=== PATIENT | female | born 1965 | race Caucasian/White ===

== ENCOUNTER 2019-10-05 09:03 | Inpatient (IN) ==
[2019-10-05 10:09] LABS: Bilirubin,Urine Negative (Negative); Blood,Urine Negative (Negative); Clarity,Urine Clear (Clear); Color,Urine Light-Yellow (Yellow); Glucose,Urine (UA) 500 mg/dL (Normal); Ketones,Urine Negative (Negative); Leukocyte Esterase,Urine Negative (Negative); Nitrite,Urine Negative (Negative); PH,Urine 6.5 pH Units (5.0-8.0); Protein,Urine Negative (Neg-Trace); Specific Gravity,Urine 1.014 (1.010-1.025); Urobilinogen,Urine Normal (Normal)
[2019-10-05 10:27] LABS: Acetaminophen < 10 mcg/mL (10-20); Alanine Aminotransferase 24 Units/L (7-52); Albumin/Globulin Ratio 1.6 (1.1-2.2); Alkaline Phosphatase 101 Units/L (34-104); Aspartate Amino Transferase 21 Units/L (13-39); BUN/Creatinine Ratio 22 (6-26); Bilirubin,Direct 0.1 mg/dL (0.0-0.2); Bilirubin,Indirect 0.4 mg/dL (0.0-1.0); Bilirubin,Total 0.5 mg/dL (0.3-1.0); Blood Urea Nitrogen 16 mg/dL (6-20); Calcium 8.9 mg/dL (8.6-10.3); Carbon Dioxide 26 mEq/L (23-29); Chloride 106 mEq/L (98-107); Ethanol < 10 mg/dL (Less than 10); Globulin 2.5 g/dL (2.4-3.5); Glucose 146 mg/dL (70-105); Osmolality,Calculated 290 (280-300); Potassium 3.8 mEq/L (3.5-5.1); Salicylate < 2.5 mg/dL (15.0-30.0); Sodium 138 mEq/L (136-145); Total Protein 6.5 g/dL (6.4-8.9); Troponin I < 0.03 ng/mL (< 0.04); eGFR For African Americans > 60 (> 60); eGFR For Non-African Americans > 60 (> 60)
[2019-10-05] MEDS ORDERED: Ondansetron 4 MG/2 ML VIAL IVP ONE ×2 (10:48→15:37)
[2019-10-05] MEDS ORDERED: Nitroglycerin 1 INCH/GM PACKET TP ONE ×2 (10:55→15:39)
[2019-10-05 10:58] LABS: Amphetamine Screen,Urine Negative ng/mL (Cutoff=1000); Barbiturate Screen,Urine Negative ng/mL (Cutoff=200); Benzodiazepines Screen,Urine Negative ng/mL (Cutoff=200); Cannabinoid Screen,Urine Positive ng/mL (Cutoff = 50); Cocaine Screen,Urine Negative ng/mL (Cutoff= 300); Opiate Screen,Urine Negative ng/mL (Cutoff=300); Phencyclidine Screen,Urine Negative ng/mL (Cutoff=25)
[2019-10-05 11:17] LABS: Basophils % 0.5 %; Eosinophils # 0.1 K/mcL (0.0-0.6); Eosinophils % 2.3 %; Hematocrit 35.8 % (35.3-44.9); Hemoglobin 12.3 g/dL (11.5-15.4); Immature Granulocytes % 0.4 % (0-4); Lymphocytes # 2.5 K/mcL (0.6-4.6); Lymphocytes % 43.1 %; Mean Corpuscular HGB Conc 34.4 g/dL (31.6-35.5); Mean Corpuscular Hemoglobin 31.2 pg (28.0-33.3); Mean Corpuscular Volume 90.9 fL (83.0-100.0); Mean Platelet Volume 10.8 fL (9.4-12.4); Monocytes # 0.4 K/mcL (0.0-1.3); Monocytes % 6.1 %; Neutrophils # 2.7 K/mcL (1.6-8.9); Platelet Count 147 K/mcL (140-400); Red Blood Count 3.94 M/mcL (3.82-4.97); Red Cell Distribution Width 12.1 % (11.5-14.5); Segmented Neutrophils % 47.6 %; White Blood Count 5.7 K/mcL (4.3-11.1)
[2019-10-05] MEDS ORDERED: Naloxone 0.4 MG/ML INJ IVP PRN (13:22)
[2019-10-05] MEDS ORDERED: *HR* Dextrose 50 % in Water (Vial) 50 ML VIAL IVP PRN (13:24)
[2019-10-05] MEDS ORDERED: D5% in Water 1,000 ML IVC PRN (13:24)
[2019-10-05] MEDS ORDERED: Dextrose Gel 15 GM/37.5 ML TUBE PO PRN ×2 (13:24)
[2019-10-05] MEDS ORDERED: Perflutren Lipid Microsphere 1.3 ML in 0.9 % Sodium Chloride 8.7 ML IVP ONE ×2 (13:25→20:51)
[2019-10-05] MEDS: Insulin LISPRO 300 UNITS/3 ML VIAL SQ SCH ×2 (14:05→15:28)
[2019-10-05] MEDS: *HR* Heparin 5,000 UNIT/ML VIAL SQ SCH (15:28)
[2019-10-05] MEDS: polyethylene glycoL 3350 17 GM POWD.PACK PO PRN (16:21)
[2019-10-05] MEDS ORDERED: Albuterol 2.5 MG/3 ML NEBULIZER IH PRN (20:00)
[2019-10-05] MEDS: Gabapentin 400 MG CAPSULE PO SCH (20:54)
[2019-10-05] MEDS ORDERED: Melatonin 3 MG TABLET PO ONE (21:31)
[2019-10-05] MEDS: Simethicone 80 MG TAB.CHEW PO PRN (21:45)
[2019-10-06 02:21] LABS: Hematocrit 36.3 % (35.3-44.9); Hemoglobin 12.2 g/dL (11.5-15.4); Mean Corpuscular HGB Conc 33.6 g/dL (31.6-35.5); Mean Corpuscular Volume 92.4 fL (83.0-100.0); Mean Platelet Volume 10.8 fL (9.4-12.4); Platelet Count 145 K/mcL (140-400); Red Blood Count 3.93 M/mcL (3.82-4.97); White Blood Count 6.1 K/mcL (4.3-11.1)
[2019-10-06 02:26] LABS: BUN/Creatinine Ratio 16 (6-26); Blood Urea Nitrogen 10 mg/dL (6-20); Calcium 8.6 mg/dL (8.6-10.3); Carbon Dioxide 28 mEq/L (23-29); Chloride 106 mEq/L (98-107); Glucose 154 mg/dL (70-105); Osmolality,Calculated 292 (280-300); Potassium 3.8 mEq/L (3.5-5.1); Sodium 140 mEq/L (136-145); eGFR For African Americans > 60 (> 60); eGFR For Non-African Americans > 60 (> 60)
[2019-10-06] MEDS ORDERED: *HR* LORazepam 2 MG/ML VIAL IVP ONE ×3 (02:44→19:18)
[2019-10-06] MEDS: *HR* Heparin 5,000 UNIT/ML VIAL SQ SCH ×2 (05:38→15:14)
[2019-10-06] MEDS ORDERED: Regadenoson 0.4 MG/5 ML SYRINGE IVP ONE (06:20)
[2019-10-06] MEDS: Insulin LISPRO 300 UNITS/3 ML VIAL SQ SCH ×3 (07:14→15:28)
[2019-10-06] MEDS: Gabapentin 400 MG CAPSULE PO SCH ×3 (07:14→20:29)
[2019-10-06] MEDS: Loratadine 10 MG TABLET PO SCH (07:14)
[2019-10-06] MEDS ORDERED: SUMAtriptan succinate 50 MG TABLET PO PRN (10:56)
[2019-10-06] MEDS: Aspirin Enteric Coated 81 MG Tablet PO SCH (15:22)
[2019-10-06] MEDS: Simethicone 80 MG TAB.CHEW PO PRN (15:22)
[2019-10-06] MEDS: lamoTRIgine 25 MG TABLET PO SCH (20:29)
[2019-10-07] MEDS: polyethylene glycoL 3350 17 GM POWD.PACK PO PRN (02:38)
[2019-10-07] MEDS ORDERED: Hydrocortisone Acetate 25 MG RECTAL SUPPOSITORY RC ONE (04:08)
[2019-10-07] MEDS: *HR* Heparin 5,000 UNIT/ML VIAL SQ SCH ×2 (04:53→17:25)
[2019-10-07 06:17] LABS: Hematocrit 35.7 % (35.3-44.9); Mean Corpuscular HGB Conc 36.4 g/dL (31.6-35.5); Mean Corpuscular Hemoglobin 32.5 pg (28.0-33.3); Mean Corpuscular Volume 89.3 fL (83.0-100.0); Mean Platelet Volume 10.2 fL (9.4-12.4); Platelet Count 153 K/mcL (140-400); Red Cell Distribution Width 11.9 % (11.5-14.5); White Blood Count 7.5 K/mcL (4.3-11.1)
[2019-10-07 06:33] LABS: BUN/Creatinine Ratio 17 (6-26); Blood Urea Nitrogen 11 mg/dL (6-20); Calcium 9.3 mg/dL (8.6-10.3); Carbon Dioxide 26 mEq/L (23-29); Chloride 105 mEq/L (98-107); Glucose 132 mg/dL (70-105); Osmolality,Calculated 285 (280-300); Sodium 137 mEq/L (136-145); eGFR For African Americans > 60 (> 60); eGFR For Non-African Americans > 60 (> 60)
[2019-10-07] MEDS ORDERED: Acetaminophen 325 MG TABLET PO ONE (06:49)
[2019-10-07] MEDS ORDERED: lisinopriL 5 MG TABLET PO SCH (09:00)
[2019-10-07] MEDS: Insulin LISPRO 300 UNITS/3 ML VIAL SQ SCH ×3 (09:30→17:11)
[2019-10-07] MEDS: Loratadine 10 MG TABLET PO SCH (09:36)
[2019-10-07] MEDS: Venlafaxine XR (24 HR) 75 MG CAP.ER.24H PO SCH (09:36)
[2019-10-07] MEDS: Aspirin Enteric Coated 81 MG Tablet PO SCH (09:36)
[2019-10-07] MEDS: ARIPiprazole 10 MG TABLET PO SCH (09:36)
[2019-10-07] MEDS: Gabapentin 400 MG CAPSULE PO SCH ×3 (09:37→21:04)
[2019-10-07] MEDS: lamoTRIgine 25 MG TABLET PO SCH (21:03)
[2019-10-07] MEDS ORDERED: Melatonin 3 MG TABLET PO ONE (22:43)
[2019-10-08] MEDS ORDERED: Preparation H Ointment 57 GM TUBE RC PRN (03:08)
[2019-10-08] MEDS ORDERED: Hydrocortisone Rectal 2.5% CRM 28 GM TUBE RC PRN (05:08)
[2019-10-08 05:43] LABS: Hematocrit 39.4 % (35.3-44.9); Hemoglobin 13.9 g/dL (11.5-15.4); Mean Corpuscular HGB Conc 35.3 g/dL (31.6-35.5); Mean Corpuscular Hemoglobin 31.4 pg (28.0-33.3); Mean Corpuscular Volume 88.9 fL (83.0-100.0); Mean Platelet Volume 10.3 fL (9.4-12.4); Platelet Count 175 K/mcL (140-400); Red Blood Count 4.43 M/mcL (3.82-4.97); White Blood Count 7.1 K/mcL (4.3-11.1)
[2019-10-08] MEDS: *HR* Heparin 5,000 UNIT/ML VIAL SQ SCH ×2 (06:31→16:48)
[2019-10-08] MEDS: Loratadine 10 MG TABLET PO SCH (08:00)
[2019-10-08] MEDS: Venlafaxine XR (24 HR) 75 MG CAP.ER.24H PO SCH (08:00)
[2019-10-08] MEDS: carvediloL 6.25 MG TABLET PO SCH ×2 (08:00→16:48)
[2019-10-08] MEDS: Gabapentin 400 MG CAPSULE PO SCH ×3 (08:00→21:38)
[2019-10-08] MEDS: Aspirin Enteric Coated 81 MG Tablet PO SCH (08:00)
[2019-10-08] MEDS: lisinopriL 5 MG TABLET PO SCH (08:01)
[2019-10-08] MEDS: ARIPiprazole 10 MG TABLET PO SCH (08:01)
[2019-10-08] MEDS: Insulin LISPRO 300 UNITS/3 ML VIAL SQ SCH ×3 (08:23→16:47)
[2019-10-08] MEDS ORDERED: lisinopriL 5 MG TABLET PO SCH (09:00)
[2019-10-08] MEDS: Acetaminophen 325 MG TABLET PO PRN ×2 (10:01→21:38)
[2019-10-08] MEDS: Simethicone 80 MG TAB.CHEW PO PRN (18:14)
[2019-10-08] MEDS ORDERED: Melatonin 3 MG TABLET PO SCH (21:00)
[2019-10-08] MEDS: lamoTRIgine 25 MG TABLET PO SCH (21:38)
[2019-10-09] MEDS ORDERED: tiZANidine 4 MG TABLET PO ONE (01:13)
[2019-10-09 04:41] LABS: BUN/Creatinine Ratio 31 (6-26); Blood Urea Nitrogen 22 mg/dL (6-20); Calcium 9.8 mg/dL (8.6-10.3); Carbon Dioxide 23 mEq/L (23-29); Chloride 103 mEq/L (98-107); Glucose 146 mg/dL (70-105); Osmolality,Calculated 290 (280-300); Potassium 4.1 mEq/L (3.5-5.1); Sodium 137 mEq/L (136-145); eGFR For African Americans > 60 (> 60); eGFR For Non-African Americans > 60 (> 60)
[2019-10-09] MEDS: *HR* Heparin 5,000 UNIT/ML VIAL SQ SCH (05:12)
[2019-10-09] MEDS ORDERED: *HR* Heparin 10,000 UNIT/10 ML VIAL ONE (07:07)
[2019-10-09] MEDS ORDERED: 0.9 % Sodium Chloride 1,000 ML ONE ×2 (07:07→07:12)
[2019-10-09] MEDS ORDERED: Heparin 1,000 UNITS/500 mL 500 ML ONE (07:07)
[2019-10-09] MEDS ORDERED: Nitroglycerin 1,000 MCG/10 ML VIAL IV ONE (07:08)
[2019-10-09] MEDS ORDERED: ISOVUE-370 200 ML INFUS..BTL ONE (07:08)
[2019-10-09] MEDS: ARIPiprazole 10 MG TABLET PO SCH (07:30)
[2019-10-09] MEDS: Aspirin Enteric Coated 81 MG Tablet PO SCH (07:30)
[2019-10-09] MEDS: Loratadine 10 MG TABLET PO SCH (07:30)
[2019-10-09] MEDS: Gabapentin 400 MG CAPSULE PO SCH (07:30)
[2019-10-09] MEDS: Venlafaxine XR (24 HR) 75 MG CAP.ER.24H PO SCH (07:30)
[2019-10-09] MEDS: lisinopriL 5 MG TABLET PO SCH (07:31)
[2019-10-09] MEDS: carvediloL 6.25 MG TABLET PO SCH (07:31)
[2019-10-09] MEDS: Insulin LISPRO 300 UNITS/3 ML VIAL SQ SCH ×3 (07:37→14:35)
[2019-10-09] MEDS ORDERED: *HR* FentaNYL (PF) 100 MCG/2 ML VIAL ONE (07:42)
[2019-10-09] MEDS ORDERED: *HR* Midazolam HCl 2 MG/2 ML VIAL ONE (07:42)
[2019-10-09 13:42] VITALS: BP 115/68
== END 2019-10-09 14:36 | disposition home or self-care (01) | DRG 191 ==
LOC: 3BNU 09:03 → EMEROOARM 09:03 → SUATTDRO 12:13 → 3BNU 12:45 → 2ANU 10-07 18:26
PROVIDERS: ADMIT Internal Medicine; ATTEND Internal Medicine